=== PATIENT | female | born 1965 | race Caucasian/White ===

== ENCOUNTER 2025-08-28 09:04 | Day surgery (SDC) | payer BC, SELFPAY ==
[2025-08-28] MEDS: LACTATED RINGERS 1,000 ML 42 ML IV (10:14)
--- NOTE | 2025-08-28 10:18 | P.HP_ITS ---
History of Present Illness History of Present Illness Date Patient Seen: 08/28/25 Chief complaint: [facility] Medical History (Updated 06/15/25 @ 13:04 by Lucy Cochran DO) Shoulder pain (~2021) Ankle pain (~2015) Chicken pox (~1972) Surgical History (Updated 06/09/25 @ 20:17 by Tamiko Hodge) Anesthesia History of oral surgery History of tonsillectomy (~1970) Family History (Updated 06/09/25 @ 20:18 by Tamiko Hodge) Mother Cancer Social History Smoking Status: Never smoker alcohol intake: current Meds Home Medications and Allergies Home Medications ?Medication ?Instructions ?Recorded ?Confirmed ?Type buspirone 5 mg tablet 5 mg PO DAILY 08/10/2508/28 History ondansetron 4 mg disintegrating 4 - 8 mg (1 - 2 x 4 mg ) PO Q8H PRN 08/11/25 08/28/25 Rx tablet nausea and vomiting #6 tabs Allergies Allergy/AdvReac Type Severity Reaction Status Date / Time lidocaine AdvReac Severe heart Verified 08/28/25 09:48 racing Exam Narrative Exam Narrative: Oropharynx free of lesions Chest clear to auscultation percussion Cardiac exam reveals no S3 or murmur Assessment & Plan Assessment & Plan narrative: History of colon polyps with positive Cologuard. Need for follow-up colonoscopy. Risks, benefits, alternatives have been explained. Time-Based Coding :: [TOTAL MINUTES] spent with patient and on the chart (including review of chart, obtaining history, exam, reviewing outside data, placing orders, documenting exam and treatment plan, and counseling patient) on [DATE]. [employer] Worker Document charge(s): No
--- NOTE | 2025-08-28 10:19 | P.OP.COLON_ITS ---
Operative Date/Time/Diagnoses Date of procedure: 08/28/25 Time of procedure: 11:22 Pre-op diagnosis: See indication and findings Post-op diagnosis: same Procedure & Clinicians Study performed: Colonoscopy Same procedure(s) as scheduled: Yes Indications: Positive Cologuard with history of colon polyps Surgeon: Marta Swann Anesthesia Type: Other Procedure Notes Procedure in detail: After informed consent was obtained the patient was placed in left lateral decubitus position. The video colonoscope was placed in the rectum slowly advanced to what is most likely the splenic flexure. Here the lumen appeared to be twisted and difficult to pass. After 15-20 minutes of trying to find a way through this area we decided to abort the procedure. Preparation was good. On slow withdrawal mucosa was carefully examined. The scope was removed. The patient tolerated procedure well. Blood loss none Complications none Sedation mac Findings 1. Difficulty passing what is probably splenic flexure and preprocedur e eventually aborted. Think this is probably due to unusual twisting of the colon though incomplete. Given that she has had positive Cologuard as well I think it would be best if she had CT colonography. We will try to set this up through the surgical office. Estimated Blood Loss: 0 Complications: none
[2025-08-28 11:16] VITALS: BP 101/60; PULSE 64; RESP 16; TEMP 36.4; O2SAT 98
[2025-08-28 11:21] VITALS: BP 102/60; PULSE 60; RESP 14; O2SAT 98
[2025-08-28 11:26] VITALS: BP 110/66; PULSE 59; RESP 16; O2SAT 98
[2025-08-28 11:30] VITALS: BP 110/61; PULSE 65; RESP 14; TEMP 36.4; O2SAT 98
== END 2025-08-28 11:50 | disposition home or self-care (01) ==
PROVIDERS: PCP Family Medicine; Referring Provider Internal Medicine Gastroenterology; Visit Provider Internal Medicine Gastroenterology
PROC: 0DJD8ZZ Inspection of Lower Intestinal Tract, Via Natural or Artificial Opening Endoscopic (ICD-10-PCS; CPT 45378; principal; 2025-08-28 10:30)
DX: Z12.11 Encounter for screening for malignant neoplasm of colon (principal); R19.5 Other fecal abnormalities; Z86.0100 Personal history of colon polyps, unspecified; Z53.09 Procedure and treatment not carried out because of other contraindication
CPT/HCPCS: 45378; J2704; J7120

== ENCOUNTER → 2025-09-04 12:56 | Outpatient (CLI) | payer BC, SELFPAY ==
[2025-09-04 14:25] LABS: Add Manual Diff / Slide Review NO; Hematocrit 38.7 % (36-46); Hemoglobin 13.7 g/dL (12.0-16.0); Lymphocytes Absolute Auto 3100 /uL (1100-4500); Mean Corpuscular HGB Conc 35.4 % (30-36); Mean Corpuscular Hemoglobin 32.5 PG (26-34); Mean Corpuscular Volume 91.6 fL (80-100); Platelet Count 268 X10^3/uL (150-400)
[2025-09-04 14:55] LABS: Alanine Aminotransferase 19 IU/L (<35); Albumin 4.7 g/dL (3.5-5.0); Albumin Globulin Ratio 2.0 (1.0-2.8); Alkaline Phosphatase 70 U/L (38-126); Blood Urea Nitrogen 14 mg/dL (7-17); Calcium 9.8 mg/dL (8.4-10.2); Carbon Dioxide 23 mmol/L (22-32); Chloride 102 mmol/L (98-107); Estimated Glomerular Filt Rate > 60 mL/min (>60); Globulin 2.4 g/dL (1.7-4.1); Glucose 96 mg/dL (70-99); HEMOLYSIS < 15 (0-50); Potassium 4.3 mmol/L (3.4-5.1); Sodium 137 mmol/L (137-145); Total Protein 7.1 g/dL (6.3-8.2)
[2025-09-06 11:51] LABS: HEMOLYSIS 38 (0-50); Iron 93 ug/dL (37-170)
[2025-09-06 12:02] LABS: Percent Iron Saturation 35 % (15-50); Total Iron Binding Capacity 269 ug/dL (265-497); Transferrin 243 mg/dL (206-381)
== END ==
PROVIDERS: PCP Family Medicine; Referring Provider Family Medicine; Visit Provider Family Medicine
DX: F41.9 Anxiety disorder, unspecified (principal); R79.89 Other specified abnormal findings of blood chemistry
CPT/HCPCS: 36415; 80053; 83540; 83550; 85025